=== PATIENT | male | born 1995 | race Caucasian/White ===

== ENCOUNTER → 2020-05-10 | Emergency (ER) | payer OTHER ==
[~2020-05-10] VITALS: Ht 188 cm; Wt 95.3 kg
[2020-05-10 21:20] VITALS: BP 135/78
== END | disposition home or self-care (01) ==
LOC: ER 17:28
DX: S23.41XA Sprain of ribs, initial encounter (principal); X50.1XXA Overexertion from prolonged static or awkward postures, initial encounter; Y93.89 Activity, other specified; Y92.89 Other specified places as the place of occurrence of the external cause; Y99.8 Other external cause status
CPT/HCPCS: 71046